=== PATIENT | male | born 1955 | race Caucasian/White ===

== ENCOUNTER 2025-08-21 11:25 | Outpatient (CLI) | payer MEDICARE, OTHER ==
--- NOTE | 2025-08-22 04:03 | CONSULTATION ---
DATE OF CONSULTATION: 08/21/2025 DICTATING PHYSICIAN: Danya Ruvalcaba M.S., [facility] PROJECT ENGINEER MODIFIED BARIUM SWALLOW STUDY REPORT REFERRING PHYSICIAN: Darell Figueroa MD HISTORY OF PRESENT ILLNESS: The patient is a 70-year-old male and consents to this evaluation. The patient's was present for results of this evaluation. In history obtained from the patient and medical records, the patient reports symptoms of dysphagia including coughing on food items at least 1 meal per day. He denies difficulty with liquids at this time. 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 He reports that this had occurred over 12 years ago and that it has gotten harder to swallow since then. He notes that he has a very hard time breathing through his nose and so sometimes he ends up breathing in as he is chewing and then he will start coughing on whatever it is that he was eating. He sometimes has to turn his head to the right to help him swallow better. He reports having to do multiple swallows in order to get items down. He has particular difficulty with Irish fries and bread and has to cut his chicken smaller and finds that ketchup helps for these items to go down better. CURRENT DIET: The patient is currently on a regular texture thin liquid diet. He does not have any specific food restrictions at this time, but there are particular foods that he has to take more care with as he is eating them, including bread. MEDICATIONS: Ibuprofen 200 mg tablet. PARAMETERS: The patient is seated in a lateral 90-degree view and administered the usual protocol of thin and nectar thick liquids, puree and solid consistencies, as well as self-regulated boluses of thin liquids from the cup. RESULTS: In the oral stage of the swallow, lingual strength was mild to moderately reduced. There was a moderate oral residue following the initial swallow of the bolus. In the pharyngeal stage of the swallow, tongue base retraction was moderately reduced. Swallow initiation was within functional limits. Anterior movement of the posterior pharyngeal wall was observed. Elevation of the hyothyroid complex was accomplished with moderately reduced anterior movement of the hyoid and mildly reduced superior movement of the hyoid and full epiglottic inversion. There was a moderate pharyngeal residue noted at the level of the valleculae and PES opening. PES opening was mild to moderately reduced. In terms of airway safety, the patient did demonstrate penetration on various boluses that were not on the initial swallow of the bolus, but were on the secondary swallow due to the amount of residue that resided above the PES opening following the initial swallow of boluses. ANTERIOR-POSTERIOR VIEW: In the AP plane, the bolus split symmetrically between the piriform sinuses and no proximal movement of the bolus was noted. IMPRESSION: The patient demonstrates what appears to be a moderate oropharyngeal stage swallowing disorder characterized by reduced lingual strength, reduced tongue base retraction, reduced PES opening, and pharyngeal residue that would result in penetration on residue when completing secondary swallows. 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 PATIENT EDUCATION: Immediately following modified barium swallow study, the patient and his were able to view the results. The normal anatomy of the swallowing mechanism was reviewed. The patient was able to see how the current status of the swallowing mechanism decreases his ability to swallow normally. The patient was educated on a recommendation for speech therapy to strengthen the muscles involved in swallowing and agreed to participate at this time. It should be noted that the patient does not permanently live in this area and so he plans to come to one session with this clinician to learn different swallowing exercises that he can do, but he will be spending an extended period of time in [place] and so he will try to find a speech therapist there to follow up with once he leaves [place] for this extended period of time to visit his daughter. The patient was educated on the EMST 150 that he could purchase prior to our appointment so he can be instructed on usage. He was educated on safe swallowing strategies including alternating liquids and solids and taking smaller bites and sips. He was also educated on the benefits of utilizing NMES in swallowing therapy and so he was educated on asking providers if they utilized and were trained in NMES when he searches for a speech therapist in [place]. RECOMMENDATIONS: 1. It is recommended that the patient receive swallowing therapy 1 time weekly for 6 weeks to improve the strength of the swallowing musculature to ensure airway safety protection and prevent aspiration. 2. It is recommended that the patient utilize safe swallowing strategies including alternating liquids and solids and taking smaller bites and sips. LONG-TERM GOALS: The patient will maintain adequate hydration/nutrition with optimum safety and efficiency of swallow function on p.o. intake by demonstrating learned knowledge of swallowing exercises that will target increased lingual strength, tongue base retraction and PES opening. PROGNOSIS: Prognosis for the patient is good in terms of patient motivation and family support. FUNCTIONAL ORAL INTAKE: The FOIS was administered to establish and document a change in the functional eating activities of this patient over time. This is a 7-point scale with 1 indicating no oral intake and totally tube dependent and 7 indicating total oral intake with no restrictions. This patient received a 7, which indicates total oral intake with no restrictions. G-CODE: [id number]. Thank you very much for asking me to participate in the care of this kind patient. Should you have any questions regarding this evaluation or recommendations, please do not hesitate to contact me at [phone]. During this examination, 3:21 minutes of fluoroscopy time and 15.34 CAK mGy were utilized. Danya Ruvalcaba M.S., [facility] PRO[employer] ENGINEER TID: [id number] RECEIPT: [id number] JEET/TERRIE LOWRY
== END 2025-08-21 23:59 | disposition home or self-care (01) ==
LOC: RAD 11:25
PROVIDERS: ATTEND Otolaryngology
DX: R13.14 Dysphagia, pharyngoesophageal phase (principal)
CPT/HCPCS: 74230